=== PATIENT | male | born 1995 | race American Indian/Alaskan Native ===

== ENCOUNTER 2017-12-20 13:37 | Emergency (ER) | payer MEDICAID ==
[2017-12-20 13:44] VITALS: BP 152/88; PULSE 74; RESP 18; TEMP 97.8; O2SAT 99
--- NOTE | 2017-12-20 14:32 | ED PDOC ---
HPI: Head Injury Time Seen by Provider: 12/20/17 13:44 Chief Complaint (Nursing): Trauma Chief Complaint (Provider): Head injury after fall down the steps History Per: Patient History/Exam Limitations: no limitations Onset/Duration Of Symptoms: Days Patient States: Fell Striking Head Severity: Mild Pain Scale Rating Of: 3 Additional Complaint(s): 22 yo male with no medical problems presents with mild headache and dizziness which began after he fell down the steps 2 days ago. Pt reports no symptoms improvement in the last 2-3 days. Past Medical History Reviewed: Historical Data, Nursing Documentation, Vital Signs Vital Signs: Last Vital Signs Temp 97.8 F 12/20/17 13:41 Pulse 74 12/20/17 13:41 Resp 18 12/20/17 13:41 BP 152/88 H 12/20/17 13:41 Pulse Ox 99 12/20/17 13:41 - Medical History PMH: No Chronic Diseases - Surgical History Surgical History: No Surg Hx - Family History Family History: States: No Known Family Hx - Allergies Allergies/Adverse Reactions: Allergies Allergy/AdvReac Type Severity Reaction Status Date / Time No Known Allergies Allergy Verified 12/20/17 13:40 Review of Systems ROS Statement: Except As Marked, All Systems Reviewed And Found Negative Neurological: Positive for: Headache, Dizziness. Negative for: Confusion Physical Exam - Reviewed Nursing Documentation Reviewed: Yes Vital Signs Reviewed: Yes - Physical Exam Appears: Positive for: Well, Non-toxic, No Acute Distress Head Exam: Positive for: NORMAL INSPECTION, NORMOCEPHALIC. Negative for: ATRAUMATIC (Healing abrasions on the left side of the face without surrounding erythema ) Skin: Positive for: Normal Color, Warm, DRY Eye Exam: Positive for: EOMI, Normal appearance, PERRL ENT: Positive for: Normal ENT Inspection Neck: Positive for: Normal, Painless ROM Cardiovascular/Chest: Positive for: Regular Rate, Rhythm Respiratory: Positive for: Normal Breath Sounds. Negative for: Accessory Muscle Use Back: Positive for: Normal Inspection. 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 Negative for : Motor/Sensory Deficits, Aphasia, Facial Droop - ECG O2 Sat by Pulse Oximetry: 99 Medical Decision Making Medical Decision Making: Head CT normal. Disposition - Clinical Impression Clinical Impression: Fall down steps, Head and face pain - Disposition Disposition: Routine/Home Disposition Time: 15:20 Condition: STABLE Instructions: Concussion, Adult (DC)
--- NOTE | 2017-12-20 14:52 | CT ---
PROCEDURE: CT HEAD WITHOUT CONTRAST. HISTORY: head injury, dizziness, headache COMPARISON: None available. TECHNIQUE: Axial computed tomography images were obtained through the head/brain without intravenous contrast. Radiation dose: Total exam DLP = 851.42 mGy-cm. This CT exam was performed using one or more of the following dose reduction techniques: Automated exposure control, adjustment of the mA and/or kV according to patient size, and/or use of iterative reconstruction technique. FINDINGS: HEMORRHAGE: No intracranial hemorrhage. BRAIN: No mass effect or edema. No atrophy or chronic microvascular ischemic changes. VENTRICLES: Unremarkable. No hydrocephalus. CALVARIUM: Unremarkable. PARANASAL SINUSES: Unremarkable as visualized. No significant inflammatory changes. MASTOID AIR CELLS: Unremarkable as visualized. No inflammatory changes. OTHER FINDINGS: None. IMPRESSION: Normal CT of the Head. No intracranial hemorrhage.
== END 2017-12-20 15:29 | disposition home or self-care (01) ==
LOC: H.ER 13:37
DX: S09.90XA Unspecified injury of head, initial encounter (principal); W10.9XXA Fall (on) (from) unspecified stairs and steps, initial encounter; Y92.89 Other specified places as the place of occurrence of the external cause